=== PATIENT | male | born 1995 | race Caucasian/White ===

== ENCOUNTER 2018-04-14 15:38 | Emergency (ER) | payer SELFPAY ==
[2018-04-14 15:56] VITALS: BP 99/66
[2018-04-14] MEDS ORDERED: ACULAR5 ML OD (16:19)
[2018-04-14] MEDS ORDERED: OCUFLOX5 ML OD (16:19)
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
== END 2018-04-14 16:26 ==
LOC: ERH 15:38
DX: S05.01XA Injury of conjunctiva and corneal abrasion without foreign body, right eye, initial encounter (principal); S00.83XA Contusion of other part of head, initial encounter; R04.0 Epistaxis; Y04.8XXA Assault by other bodily force, initial encounter; Y93.67 Activity, basketball; Y92.9 Unspecified place or not applicable